=== PATIENT | female | born 1995 | race Caucasian/White ===

== ENCOUNTER 2023-05-14 14:03 | Outpatient (REF) | payer MEDICAID, SELFPAY ==
[2023-05-14 15:13] LABS: MANUAL DIFF FLAG NO
[2023-05-14 15:14] LABS: Basophils Absolute Auto 0.1 X10*3/uL (0.0-0.2); Basophils Percent Auto 0.8 % (0-2); Eosinophils Absolute Auto 0.1 X10*3/uL (0.0-0.4); Eosinophils Percent Auto 1.4 % (0-4); Hematocrit 40.2 % (37.0-47.0); Hemoglobin 12.7 g/dl (12.0-16.0); Imm Gran Abs Auto 0.03 X10*3/uL (0.00-0.03); Imm Gran Pct Auto 0.3 % (0.0-0.4); Lymphocytes Percent Auto 31.5 % (20-40); Mean Corpuscular HGB Conc 31.6 g/dl (31.0-35.0); Mean Corpuscular Hemoglobin 22.4 pg (27.0-33.0); Mean Corpuscular Volume 70.8 fL (80.0-98.0); Mean Platelet Volume 10.5 fL (9.4-12.3); Monocytes Absolute Auto 0.5 X10*3/uL (0.1-1.2); Monocytes Percent Auto 5.1 % (2-11); Neutrophils Absolute Auto 5.8 x10*3/uL (2.0-8.3); Neutrophils Percent Auto 60.9 % (45-73); Platelet Count 465 X10*3/uL (160-400); Red Blood Count 5.68 X10*6/uL (4.20-5.50); Red Cell Distribution Width 14.9 % (11.0-16.0); White Blood Count 9.6 X10*3/uL (4.8-10.8)
[2023-05-14 15:31] LABS: Alanine Aminotransferase 21 U/L (0-31); Albumin Level 4.3 g/dL (3.5-5.0); Alkaline Phosphatase 86 U/L (39-117); Anion Gap 13 (12-20); Aspartate Amino Transferase 18 U/L (5-31); Bilirubin Direct 0.2 mg/dL (0.0-0.5); Bilirubin Total 0.5 mg/dL (0.0-1.0); Blood Urea Nitrogen 12 mg/dL (9-16); Carbon Dioxide 24 mmol/L (22-29); Chloride 105 mmol/L (96-108); Cholesterol 132 mg/dL (<200); Estimated Glomerular Filt Rate > 60; Glucose Fasting 86 mg/dL (60-99); HDL Cholesterol 43 mg/dL (>40); LDL Cholesterol Calculated 72 mg/dL (<100); Sodium 138 mmol/L (135-145); Total Protein 7.9 g/dL (6.5-8.0); Triglycerides 89 mg/dL (<150)
== END 2023-05-14 14:04 | disposition home or self-care (01) ==
LOC: HO.HMGCLDS 14:03
PROVIDERS: PCP Internal Medicine; Visit Provider Internal Medicine
DX: E78.5 Hyperlipidemia, unspecified (principal)
CPT/HCPCS: 36415; 80051; 80061; 80076; 82565; 82947; 84520; 85025

== ENCOUNTER 2023-07-04 15:19 | Emergency (ER) | payer MEDICAID, SELFPAY ==
--- NOTE | ~2023-07-04 | US_ITS ---
EXAMINATION: US VENOUS ULTRASOUND WITH DOPPLER LOWER EXTREMITY, LEFT CLINICAL INFORMATION: Pain behind the knee. COMPARISON: None available. TECHNIQUE: Ultrasound of the deep veins is performed from the hip to the calf with compression sonography and color and pulse Doppler assessment. Spectral analysis with color-flow imaging is performed. FINDINGS: There is normal venous compression and respiratory variation and augmented flow. The visualized common femoral vein, superficial femoral vein, profunda femoral vein, popliteal vein, and the trifurcation region shows no evidence of deep venous thrombosis. There is a 2 x 3.4 x 0.7 cm slightly complex question ruptured popliteal fossa cyst extending into the proximal calf. US/US venous duplex LE LT IMPRESSION: No DVT demonstrated in the left lower extremity. Small Collier's cyst described above.
[2023-07-04 15:34] VITALS: BP 148/105; PULSE 91; RESP 16; TEMP 36.7; O2SAT 98; BMI 41.0
--- NOTE | 2023-07-04 15:35 | ED_ITS ---
HPI - Extremity Injury (Lower) General Chief Complaint: Extremity Injury, Lower Stated Complaint: lt knee pain x2 wks, lump back of knee fam hx clot Time Seen by Provider: 07/04/23 15:49 Source: patient Mode of arrival: ambulatory Limitations: no limitations History of Present Illness HPI Narrative: Patient is a 28 year old assigned female at with no reported medical history presenting to the emergency department today with left lower leg pain. Patient states that over the last 2 weeks she has had left lower leg pain with a lump felt behind her left knee. Patient states that she is concerned it is a DVT. Patient denies any dizziness, lightheadedness, abdominal pain, nausea, vomiting, fever, chills, blurry vision, double vision, loss of vision, chest pain, difficulty breathing, shortness of breath, back pain, night sweats, pain with urination, increased urinary frequency, increased urinary urgency, blood in her urine or stool, syncope or a near syncopal episode, recent trauma or falls, bowel incontinence, bladder incontinence, bowel retention, bladder retention, or any other complaints at this time. Onset (ago): week(s) (2) Severity: mild Severity scale (1-10): 3 Exacerbating factors: weight bearing and movement Other symptoms: none Related Data Allergies Allergy/AdvReac Type Severity Reaction Status Date / Time Penicillins Allergy Hives Verified 07/04/23 15:38 Review of Systems 2 Constitutional: Constitutional: Reports no additional constitutional complaints, Denies chills, Denies fever(s) and Denies night sweats Eyes: Eyes: Reports no additional eye complaints, Denies blurry vision, Denies change in vision, Denies diplopia, Denies eye discharge, Denies loss of vision and Denies eye pain ENT: Denies dizziness Cardiovascular: Cardiovascular: Reports no additional cardiovascular complaints, Denies chest pain, Denies lightheadedness, Denies Loss of Consciousness and Denies dyspnea Respiratory: Respiratory: Reports no additional respiratory complaints and Denies dyspnea Gastrointestinal: Gastrointestinal: Reports no additional gastrointestinal complaints, Denies abdominal pain, Denies melena, Denies hematochezia, Denies change in bowel habits and Denies change in stool character Genitourinary: Genitourinary: Denies hematuria, Denies urinary frequency, Denies dysuria, Denies urinary incontinence, Denies urinary hesitancy and Denies urinary urgency Musculoskeletal: Musculoskeletal: Reports no additional musculoskeletal complaints, Denies numbness and Denies tingling Comments: left knee pain Neurologic: Denies dizziness, Denies loss of vision, Denies numbness and Denies tingling Psychiatric: Psychiatric: Reports no additional psychiatric complaints Endocrine: Endocrine: Reports no additional endocrine complaints Hematologic/Lymphatic: Hematologic/Lymphatic: Reports no additional hematologic/lymphatic complaints Allergic/Immunologic: Allergic/Immunologic: Reports no additional allergic/immunologic complaints PMFSH Past Medical History Attestation statement: The following information was validated with the patient. Source: old records reviewed and nursing notes reviewed Social History Social History Advance Directives: No Advance Directives Information Provided: No Physical Exam 2 Vital Signs: Vital Signs: Last Vital Signs Temp 98.1 F 07/04/23 18:10 Pulse 71 07/04/23 18:10 Resp 18 07/04/23 18:10 BP 119/75 07/04/23 18:10 Pulse Ox 99 07/04/23 18:10 O2 Del Method Room Air 07/04/23 18:10 BMI result Body Mass Index 41.0 Const: General: cooperative, no acute distress, alert and awake Nutritional Appearance: well nourished Orientation/consciousness: patient oriented x3 Limitations: no limitations HEENT: Head: Yes normal to inspection and Yes atraumatic Ears: hearing grossly normal bilaterally and external ears normal General nose exam: Normal external nose present, no nasal discharge noted and no epistaxis Face and sinus: Yes normal facial exam, No abrasion and No laceration Mouth: Normal oral and palatal mucosa present, no drooling and no muffled voice Eyes: General: appearance normal, both eyes and all related structures P eriorbital: periorbital findings normal Eyelids: Yes eyelids normal C onjunctivae: conjunctivae normal Pupils: Equal, round and reactive pupils present EOM: EOMs intact bilaterally Neck: Neck: Yes normal visual inspection, Yes full ROM and Yes no lymphadenopathy Chest: Chest palpation & inspection: normal inspection of the chest Resp: Effort & Inspection: normal respiratory effort and able to speak in complete sentences GI: Inspection: Yes normal to inspection Neuro: General: patient oriented x3 and moves all extremities Cranial nerves: Yes Equal, round and reactive pupils present Cognition (Neuro): n ormal cognition Motor exam (neuro): 5/5 motor strength present throughout Sensory Exam: Normal double simultaneous stimulation for sensation C oordination: [id number] test normal Extrem: General: Yes normal to inspection, Yes full ROM and Yes capillary refill normal Psych: Appearance: grossly normal Mental Status: mental status grossly normal Affect: normal affect Attitude: cooperative Thought process: N ormal thought process present Thought content: Normal thought content present Insight: Good insight present (Psych) Course Course Course Narrative: This is a rapid medical exam: Additional HPI, ROS, PE not included below will be deferred to primary provider. Patient is a 28-year-old female presenting to the ED with complaint of left knee pain for the past 2 weeks. Noted a bump behind left knee recently, states pain radiates to L hip. Mother and sister have hx of DVTs. Plan: labs, US Medical Decision Making Medical Decision Making [facility] Narrative: Patient is a 28 year old assigned female at with no reported medical history presenting to the emergency department today with left knee pain. Patient's physical exam was unremarkable. Patient's blood work was unremarkable. Patient's left lower leg US showed no DVT but did show evidence of a small collier's cyst. I explained my physical exam findings as well as all test results to the patient. I answered all questions asked by the patient. I stressed the importance of the patient taking her medication as prescribed. I stressed the importance of the patient following up with her primary care provider and an orthopedic provider. I stressed the importance of the patient returning to the emergency department immediately if her symptoms were to worsen or if she were to develop any dizziness, shortness of breath, difficulty breathing, chest pain, blurry vision, loss of vision, nausea, vomiting, abdominal pain, fever, chills, back pain, or any other complaints. Patient verbalized agreement and understanding with this treatment plan and discharge. Differential Diagnosis Differential Diagnoses: The differential diagnosis associated with the presentation includes Collier's cyst DVT Lower leg pain Leg pain Knee pain Admission/Observation Consideration of admission/observation: Escalation of care including admission/observation considered Patient would have been admitted to the hospital had her work up had any findings where hospital admission was appropriate and her clinical presentation warranted hospital admission. Lab Data [facility] Lab Attestation statement: I reviewed the patient's lab results. My interpretation of these results are in the [facility] Rationale portion of this note. 07/04/23 15:48 07/04/23 15:48 Labs: Lab Results 07/04/23 Range/Units 15:48 WBC 8.0 (4.8-10.8) X10*3/uL RBC 5.30 (4.20-5.50) X10*6/uL Hgb 12.2 (12.0-16.0) g/dl Hct 38.4 (37.0-47.0) % MCV 72.5 L (80.0-98.0) fL MCH 23.0 L (27.0-33.0) pg MCHC 31.8 (31.0-35.0) g/dl RDW 14.6 (11.0-16.0) % Plt Count 444 H (160-400) X10*3/uL MPV 10.2 (9.4-12.3) fL Immature Gran % (Auto) 0.3 (0.0-0.4) % Neut % (Auto) 51.5 (45-73) % Lymph % (Auto) 38.4 (20-40) % Gilliam % (Auto) 5.9 (2-11) % Eos % (Auto) 2.8 (0-4) % Baso % (Auto) 1.1 (0-2) % Lymph # (Auto) 3.1 (1.2-4.9) X10*3/uL Gilliam # (Auto) 0.5 (0.1-1.2) X10*3/uL Eos # (Auto) 0.2 (0.0-0.4) X10*3/uL Baso # (Auto) 0.1 (0.0-0.2) X10*3/uL Abs Immat Gran (auto) 0.02 (0.00-0.03) X10*3/uL Absolute Neuts (auto) 4.1 (2.0-8.3) x10*3/uL Absolute Nucleated RBC 0.000 (0.0-0.012) X10*3/uL Nucleated RBC % (auto) 0.0 (0.0-0.2) /100WBC PT 12.8 (11.1-13.3) SEC INR 1.1 (0.9-1.1) Sodium 139 (135-145) mmol/L Potassium 4.1 (3.3-5.1) mmol/L Chloride 105 (96-108) mmol/L Carbon Dioxide 26 (22-29) mmol/L Anion Gap 12 (12-20) BUN 12 (9-16) mg/dL Creatinine 0.71 (0.5-1.4) mg/dL Estim Creat Clear Calc 152.1 Estimated GFR > 60 Random Glucose 88 (60-115) mg/dL Calcium 9.8 (8.4-10.2) mg/dL Total Bilirubin 0.3 (0.0-1.0) mg/dL AST 21 (5-31) U/L ALT 28 (0-31) U/L Alkaline Phosphatase 92 (39-117) U/L Total Protein 7.8 (6.5-8.0) g/dL Albumin 4.3 (3.5-5.0) g/dL Independent Interpretation I performed an independent interpretation of an: Ultrasound Interpretation: My interpretation is in agreement with the radiologist's impression of this imaging study. - EXAMINATION: US VENOUS ULTRASOUND WITH DOPPLER LOWER EXTREMITY, LEFT CLINICAL INFORMATION: Pain behind the knee. COMPARISON: None available. TECHNIQUE: Ultrasound of the deep veins is performed from the hip to the calf with compression sonography and color and pulse Doppler assessment. Spectral analysis with color-flow imaging is performed. FINDINGS: There is normal venous compression and respiratory variation and augmented flow. The visualized common femoral vein, superficial femoral vein, profunda femoral vein, popliteal vein, and the trifurcation region shows no evidence of deep venous thrombosis. There is a 2 x 3.4 x 0.7 cm slightly complex question ruptured popliteal fossa cyst extending into the proximal calf. US/US venous duplex LE LT IMPRESSION: No DVT demonstrated in the left lower extremity. Small Collier's cyst described above. Dictated By: Thelma Nunez MD Signed By: Electronically signed by Thelma Nunez MD 07/04/23 3930 Radiology Impression Discussion of test interpretation with radiology: I have reviewed the radiologist's reading. Discharge Plan Discharge Clinical Impression: Collier's cyst Patient Disposition: Home, Self-Care Instructions: Bakers Cyst (ED) Additional Instructions: Follow up with your primary care provider and an orthopedic provider. Return to the emergency department immediately if your symptoms worsen or if you develop any dizziness, shortness of breath, difficulty breathing, chest pain, blurry vision, loss of vision, nausea, vomiting, abdominal pain, fever, chills, back pain, or any other complaints. Referrals: [facility] [Provider Group] (Call to establish and follow up with an orthopedic provider. ) Esa Penaloza MD [Primary Care Provider] - Stand Alone Forms: Work/School Release Interventions: ED Discharge Assessment Last Done: 07/04/23 18:10 Discharge Date/Time: 07/04/23 18:12 Print Language: Arabic
[2023-07-04 15:52] LABS: MANUAL DIFF FLAG NO
[2023-07-04 15:55] LABS: Basophils Absolute Auto 0.1 X10*3/uL (0.0-0.2); Basophils Percent Auto 1.1 % (0-2); Eosinophils Absolute Auto 0.2 X10*3/uL (0.0-0.4); Eosinophils Percent Auto 2.8 % (0-4); Hematocrit 38.4 % (37.0-47.0); Hemoglobin 12.2 g/dl (12.0-16.0); Imm Gran Abs Auto 0.02 X10*3/uL (0.00-0.03); Imm Gran Pct Auto 0.3 % (0.0-0.4); Lymphocytes Absolute Auto 3.1 X10*3/uL (1.2-4.9); Lymphocytes Percent Auto 38.4 % (20-40); Mean Corpuscular HGB Conc 31.8 g/dl (31.0-35.0); Mean Corpuscular Volume 72.5 fL (80.0-98.0); Mean Platelet Volume 10.2 fL (9.4-12.3); Monocytes Absolute Auto 0.5 X10*3/uL (0.1-1.2); Monocytes Percent Auto 5.9 % (2-11); Neutrophils Absolute Auto 4.1 x10*3/uL (2.0-8.3); Neutrophils Percent Auto 51.5 % (45-73); Platelet Count 444 X10*3/uL (160-400); Red Cell Distribution Width 14.6 % (11.0-16.0)
[2023-07-04 16:05] LABS: INTERNATIONAL NORM RATIO 1.1 (0.9-1.1); Prothrombin Time 12.8 SEC (11.1-13.3)
[2023-07-04 16:07] LABS: Alanine Aminotransferase 28 U/L (0-31); Albumin Level 4.3 g/dL (3.5-5.0); Alkaline Phosphatase 92 U/L (39-117); Anion Gap 12 (12-20); Aspartate Amino Transferase 21 U/L (5-31); Bilirubin Total 0.3 mg/dL (0.0-1.0); Blood Urea Nitrogen 12 mg/dL (9-16); Calcium 9.8 mg/dL (8.4-10.2); Carbon Dioxide 26 mmol/L (22-29); Chloride 105 mmol/L (96-108); Creatinine Clr Calc Pharmacy 152.1; Estimated Glomerular Filt Rate > 60; Glucose Random 88 mg/dL (60-115); Potassium 4.1 mmol/L (3.3-5.1); Sodium 139 mmol/L (135-145); Total Protein 7.8 g/dL (6.5-8.0)
[2023-07-04 18:10] VITALS: BP 119/75; PULSE 71; RESP 18; TEMP 36.7; O2SAT 99
== END 2023-07-04 18:12 | disposition home or self-care (01) ==
PROVIDERS: Registered Nurse Emergency; Emergency Provider Student in an Organized Health Care Education/Training Program; PCP Internal Medicine
DX: M71.22 Synovial cyst of popliteal space [Baker], left knee (principal); M25.562 Pain in left knee; R60.0 Localized edema; Z79.899 Other long term (current) drug therapy
CPT/HCPCS: 36415; 80053; 85025; 85610; 93971; 99282; 99284

== ENCOUNTER 2023-07-08 10:44 | Outpatient (AMB) | payer MEDICAID, SELFPAY ==
--- NOTE | 2023-07-08 11:39 | MHC.OFFVIS ---
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 Patient reports being diagnosed with meningitis from , also has history of OA. She states finding relief with knee braces but she lost them when she moved here from [place]. She informed me that she has been working on her feet which causes her discomfort. Patient was [place] [facility] [place] on 07[place]04[place]23 where they found a collier cyst posterior aspect of her left knee. Patient found mild relief with PT. 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 Patient presented to the ED on 07/04/2023. Per the ED note, patient states that over the last 2 weeks she has had left lower leg pain with a lump felt behind her left knee. Ultrasound was performed and revealed a collier?s cyst. Patient reports being diagnosed with Meningitis from . She reports having a history of OA. She confirms the use of a brace with minor relief, but she states she lost the brace when she moved from [place]. She reports she works on her feet. 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 No ecchymosis, erythema, or joint effusion. No tenderness to palpation to the medial or lateral joint lines. Full knee extension and flexion. Negative Sweetie's. Negative anterior drawer. NVI. Assessment & Plan Assessment & Plan (1) Synovial cyst of popliteal space [Collier], left knee: Code(s): M71.22 - Synovial cyst of popliteal space [Collier], left knee Plan Ms. Campbell is a 28-year-old female who presents in the office today, as a new patient, for an evaluation of left knee pain. Patient presented to the ED on 07/04/2023. Per the ED note, patient states that over the last 2 weeks she has had left lower leg pain with a lump felt behind her left knee. Ultrasound was performed and revealed a collier?s cyst. Patient reports being diagnosed with Meningitis from . She reports having a history of OA. She confirms the use of a brace with minor relief, but she states she lost the brace when she moved from [place]. She reports she works on her feet. The patient will be fitted for a reaction/genumed knee brace, off the shelf, while in the office today. Follow up will be PRN, or sooner if needed. X-rays of the left knee which were obtained while in the office today and were reviewed by Arlyn terry PA-C, revealed no acute fracture or dislocation. Ultrasound of the left lower extremity, obtained 07/04/2023, revealed: FINDINGS: There is normal venous compression and respiratory variation and augmented flow. The visualized common femoral vein, superficial femoral vein, profunda femoral vein, popliteal vein, and the trifurcation region shows no evidence of deep venous thrombosis. There is a 2 x 3.4 x 0.7 cm slightly complex question ruptured popliteal fossa cyst extending into the proximal calf. IMPRESSION: No DVT demonstrated in the left lower extremity. Small Collier's cyst described above. Orders: Orders XR knee LT 3V Today M25.569 - Pain in unspecified knee Patient Instructions: Scribed by Amara Fontana director of medical services, for Arlyn Avelar PA-C on 07/08/2023 at 10:53 am, EST. Coding Level of Care Code New Pt Level 3 (38395) Diagnoses Synovial cyst of popliteal space [Collier], left knee M71.22
[2023-07-08 11:43] VITALS: BMI 41.0
== END 2023-07-08 12:04 | disposition home or self-care (01) ==
PROVIDERS: PCP Internal Medicine; Visit Provider Physician Assistant
DX: M71.22 Synovial cyst of popliteal space [Baker], left knee (principal)
CPT/HCPCS: 99203

== ENCOUNTER 2023-07-08 10:44 | Outpatient (REF) | payer MEDICAID, SELFPAY ==
--- NOTE | ~2023-07-08 | XR_ITS ---
EXAMINATION: XR KNEE, LEFT CLINICAL INFORMATION: Pain in unspecified knee. COMPARISON: None available. TECHNIQUE: AP standing view of bilateral knees. Lateral and sunrise views of the left knee. FINDINGS: Left knee: Moderate joint effusion. Bone mineralization is normal. Mild narrowing of the medial compartment. Single AP standing view of the right knee demonstrates mild narrowing of the medial compartment with tiny medial marginal osteophytes. XR/XR knee LT 3V IMPRESSION: Moderate left knee joint effusion. Mild narrowing of the medial compartment.
== END 2023-07-08 10:45 | disposition home or self-care (01) ==
LOC: HO.HOSX 10:44
PROVIDERS: PCP Internal Medicine; Visit Provider Physician Assistant
DX: M25.562 Pain in left knee (principal); M71.22 Synovial cyst of popliteal space [Baker], left knee; Z86.61 Personal history of infections of the central nervous system
CPT/HCPCS: 73562; 99212

== ENCOUNTER 2023-09-09 14:42 | Outpatient (AMB) | payer MEDICAID, SELFPAY ==
[2023-09-09 15:07] VITALS: BP 118/62; BMI 41.6
--- NOTE | 2023-09-09 15:07 | MHC.OFFVIS ---
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 She know she is overweight and she is working on it. She thinks she is healthy otherwise she was tearful at the beginning of the visit because be nervous she has been to her for 4 years and they are trying to get . She gets regular periods sometimes they might be a little bit late. She says she recently had blood work with her primary doctor and was told everything was okay and the diabetes runs in the family she does not have diabetes. She is not on the portal.. Throughout the discussions during the visit she voiced interest in being referred to the weight management program and requested it. At the very end of the visit she also shared that her mother and her sister both have a clotting disorder that is inherited and her mother and sister on blood thinners and her mother has an additional issue and is waiting another kind of referral as well. She says her mother was 440 lb and had bariatric surgery and lost weight but then gained a lot of it back and then started smoking she has now quit smoking but this contributes to the patient's motivation to want to lose the weight. She has been trying to eat better and eat less junk food unless sugar and eat salads and trying to walk at work. 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 Female Reproductive History Menstrual Age of Menarche: 11 Duration of menses: 6-7 days Date of last menstrual period: 08/29/23 control method: none Total pregnancies: 0 History of abnormal pap smear: No (no previous pap) Physical Exam Vital Signs: Last Vital Signs BP 118/62 09/09/23 15:07 BMI result Body Mass Index 41.6 Const General: healthy appearing, comfortable, no acute distress, well developed and alert Nutritional Appearance: average body habitus and obese Orientation/consciousness: patient oriented x3 Limitations: no limitations HEENT Head: Yes normocephalic Neck Neck: Yes normal visual inspection Thyroid: Thyroid normal Chest Chest palpation & inspection: normal inspection of the chest Breast/axilla inspection: normal inspection of the breasts and normal inspection of the axillae Breast/axilla palpation: normal palpation of the breasts and normal palpation of the axillae Resp Effort & Inspection: normal respiratory effort GI Inspection: Yes normal to inspection, No Abdominal wall edema and No distended Palpation (GI): Soft to palpation and nontender Other: External exam within normal limits vagina pink moist clear cervix nulliparous pink posterior smooth slightly friable with Pap scant normal clear discharge difficult to feel uterus or adnexa but neither enlarged or tender good tone with Kegel. General: Yes bladder normal to palpation External Female Exam: normal external appearance and normal appearance of the urethra Speculum Exam - Vagina: normal appearance of the vagina, normal palpation and normal vaginal discharge Speculum Exam - Cervix: normal appearance of the cervix, normal palpation and nontender Bimanual exam- vagina & uterus: normal bimanual exam, normal palpation, uterine size normal, bladder normal to palpation, consistency normal, normal palpation, uterine mobility normal, uterine shape normal, No Cervical tenderness present, non-tender and no cervical motion tenderness Bimanual Exam- Adnexa, other: normal adnexae, no masses, normal and No adnexal tenderness Neuro General: patient oriented x3 Assessment & Plan Assessment & Plan (1) Well woman exam with routine gynecological exam: Code(s): Z01.419 - Encounter for gynecological examination (general) (routine) without abnormal findings Category: Medical (2) Cervical cancer screening: Code(s): Z12.4 - Encounter for screening for malignant neoplasm of cervix Category: Medical (3) Patient desires : Code(s): Z31.9 - Encounter for procreative management, unspecified Category: Medical (4) Encounter for screening examination for sexually transmitted disease: Code(s): Z11.3 - Encounter for screening for infections with a predominantly sexual mode of transmission Category: Medical (5) Obesity, morbid, BMI 40.0-49.9: Code(s): E66.01 - Morbid (severe) obesity due to excess calories Category: Medical (6) Family history of clotting disorder: Code(s): Z83.2 - Family history of diseases of the blood and blood-forming organs and certain disorders involving the immune mechanism Category: Medical Plan -----Discussed in this visit the following: healthy balanced diet, regular and consistent exercise, getting recommended health screens, doing the best she can for her particular health concerns, kegel exercises, pap smear screening and followup recommendations, mammography screening and SBE, normal changes in cycles in her life stage--- . Discussed patient's effort at weight loss and congratulated her and encouraged her to really focus on losing weight now before trying to get and consider condom use until she loses the weight and manages to keep it off. I gave her information about the portal and I also checked her lab results done by her primary care provider. I gave her information and a referral to the weight management program. In addition because the patient informed me at the very end of the visit about her family history of blood clotting disorder I referred her to Hematology so that she can discuss this with them did share with her that if and when she does get she should get all her peer care from the extremes start of the at [facility] because if she has a clotting disorder that would put her at increased risk and that would be considerations necessary for that and additionally the obesity would put her at high risk that being said I recommend care for women with the 1st pregnancies at [facility] regardless because care from start to finish with the single team is much more comprehensive. I encouraged the patient call the weight management program herself so that she can move this process a long as this is the right time to do it when she is motivated and the younger she does not better. Pap smear was done I offered her testing for STIs and she accepted as her partner did have 1 partner right before her marriage. Additionally he should probably get checked by his primary care provider as well. Info about the patient portal also given to her we will see her in 1 year. I also sent a prescription for vitamins for her. Orders: Orders Syphilis Screen Today Z01.419 - Encounter for gynecological examination (general) (routine) without abnormal findings, Z11.3 - Encounter for screening for infections with a predominantly sexual mode of transmission, Z12.4 - Encounter for screening for malignant neoplasm of cervix, Z31.9 - Encounter for procreative management, unspecified Hepatitis B Surface Antigen Today Z01.419 - Encounter for gynecological examination (general) (routine) without abnormal findings, Z11.3 - Encounter for screening for infections with a predominantly sexual mode of transmission, Z12.4 - Encounter for screening for malignant neoplasm of cervix, Z31.9 - Encounter for procreative management, unspecified Hepatitis C Antibody Today Z01.419 - Encounter for gynecological examination (general) (routine) without abnormal findings, Z11.3 - Encounter for screening for infections with a predominantly sexual mode of transmission, Z12.4 - Encounter for screening for malignant neoplasm of cervix, Z31.9 - Encounter for procreative management, unspecified HIV Ab/Ag Today Z01.419 - Encounter for gynecological examination (general) (routine) without abnormal findings, Z11.3 - Encounter for screening for infections with a predominantly sexual mode of transmission, Z12.4 - Encounter for screening for malignant neoplasm of cervix, Z31.9 - Encounter for procreative management, unspecified Referrals Medical Weight Management Referral E66.01 - Morbid (severe) obesity due to excess calories, Z01.419 - Encounter for gynecological examination (general) (routine) without abnormal findings, Z11.3 - Encounter for screening for infections with a predominantly sexual mode of transmission, Z12.4 - Encounter for screening for malignant neoplasm of cervix, Z31.9 - Encounter for procreative management, unspecified Hematology & Oncology Referral E66.01 - Morbid (severe) obesity due to excess calories, Z01.419 - Encounter for gynecological examination (general) (routine) without abnormal findings, Z11.3 - Encounter for screening for infections with a predominantly sexual mode of transmission, Z12.4 - Encounter for screening for malignant neoplasm of cervix, Z31.9 - Encounter for procreative management, unspecified, Z83.2 - Family history of diseases of the blood and blood-forming organs and certain disorders involving the immune mechanism Medications: New PNV,calcium [id number] acid 27 mg iron- 1 mg ( Vitamins Plus Low Iron) 1 tab PO DAILY 90 tabs 4RF Coding Level of Care Code New Pt Prev Care [id number] Diagnoses Well woman exam with routine gynecological exam Z01.419 Cervical cancer screening Z12.4 Patient desires Z31.9 Encounter for screening examination for sexually transmitted disease Z11.3 Obesity, morbid, BMI 40.0-49.9 E66.01 Family history of clotting disorder Z83.2
== END 2023-09-09 16:07 | disposition home or self-care (01) ==
LOC: HO.HWSM 14:42
PROVIDERS: PCP Internal Medicine; Visit Provider Advanced Practice Midwife
DX: Z01.419 Encounter for gynecological examination (general) (routine) without abnormal findings (principal); Z12.4 Encounter for screening for malignant neoplasm of cervix; Z31.9 Encounter for procreative management, unspecified; Z11.3 Encounter for screening for infections with a predominantly sexual mode of transmission; E66.01 Morbid (severe) obesity due to excess calories; Z83.2 Family history of diseases of the blood and blood-forming organs and certain disorders involving the immune mechanism
CPT/HCPCS: 99385

== ENCOUNTER 2023-09-09 14:42 | Outpatient (REF) | payer MEDICAID, SELFPAY ==
[2023-09-09 19:16] LABS: Bacterial Vaginosis PCR NEGATIVE (Negative); Candida Group PCR NOT DETECTED (Not Detect); Candida glab krusei PCR NOT DETECTED (Not Detect); Trichomonas vaginalis PCR NOT DETECTED (Not Detect)
[2023-09-09 19:40] LABS: CT PCR NOT DETECTED (Not Detect.); NG PCR NOT DETECTED (Not Detect.)
== END 2023-09-09 14:43 | disposition home or self-care (01) ==
LOC: HO.LAB 14:42
PROVIDERS: PCP Internal Medicine; Visit Provider Advanced Practice Midwife
DX: Z01.419 Encounter for gynecological examination (general) (routine) without abnormal findings (principal); E66.01 Morbid (severe) obesity due to excess calories; N89.8 Other specified noninflammatory disorders of vagina; Z20.2 Contact with and (suspected) exposure to infections with a predominantly sexual mode of transmission; Z83.2 Family history of diseases of the blood and blood-forming organs and certain disorders involving the immune mechanism
CPT/HCPCS: 0352U; 0353U; 88142; 99385

== ENCOUNTER → 2023-10-03 13:53 | Outpatient (BNV) | payer MEDICAID, SELFPAY | PROVIDERS: PCP Internal Medicine; Referring Provider Nurse Practitioner Family; Visit Provider Internal Medicine Medical Oncology | DX: Z83.2 Family history of diseases of the blood and blood-forming organs and certain disorders involving the immune mechanism (principal) | CPT/HCPCS: 99203; 99213 ==

== ENCOUNTER 2024-08-18 10:03 | Outpatient (REF) | payer MEDICAID, SELFPAY ==
[2024-08-18 10:22] LABS: MANUAL DIFF FLAG NO
[2024-08-18 11:02] LABS: Basophils Absolute Auto 0.1 X10*3/uL (0.0-0.2); Basophils Percent Auto 1.7 % (0-2); Eosinophils Absolute Auto 0.2 X10*3/uL (0.0-0.4); Eosinophils Percent Auto 3.6 % (0-4); Hemoglobin 12.1 g/dl (12.0-16.0); Imm Gran Abs Auto 0.02 X10*3/uL (0.00-0.03); Imm Gran Pct Auto 0.3 % (0.0-0.4); Lymphocytes Absolute Auto 2.1 X10*3/uL (1.2-4.9); Lymphocytes Percent Auto 33.1 % (20-40); Mean Corpuscular Volume 70.9 fL (80.0-98.0); Mean Platelet Volume 10.9 fL (9.4-12.3); Monocytes Absolute Auto 0.3 X10*3/uL (0.1-1.2); Monocytes Percent Auto 5.3 % (2-11); Neutrophils Absolute Auto 3.6 x10*3/uL (2.0-8.3); Platelet Count 391 X10*3/uL (160-400); Red Cell Distribution Width 15.6 % (11.0-16.0); White Blood Count 6.5 X10*3/uL (4.8-10.8)
[2024-08-18 11:59] LABS: Alanine Aminotransferase 26 U/L (0-31); Albumin Level 4.2 g/dL (3.5-5.0); Alkaline Phosphatase 84 U/L (39-117); Anion Gap 10 (12-20); Aspartate Amino Transferase 20 U/L (5-31); Bilirubin Total 0.5 mg/dL (0.0-1.0); Blood Urea Nitrogen 10 mg/dL (9-16); Calcium 9.2 mg/dL (8.4-10.2); Carbon Dioxide 24 mmol/L (22-29); Chloride 108 mmol/L (96-108); Cholesterol 124 mg/dL (<200); Estimated Glomerular Filt Rate > 60; Glucose Fasting 94 mg/dL (60-99); HDL Cholesterol 46 mg/dL (>40); LDL Cholesterol Calculated 68 mg/dL (<100); Potassium 4.1 mmol/L (3.3-5.1); Sodium 138 mmol/L (135-145); Total Protein 7.2 g/dL (6.5-8.0); Triglycerides 53 mg/dL (<150)
== END 2024-08-18 10:04 | disposition home or self-care (01) ==
LOC: HO.LAB 10:03
PROVIDERS: PCP Internal Medicine; Visit Provider Internal Medicine
DX: Z00.00 Encounter for general adult medical examination without abnormal findings (principal); R53.83 Other fatigue; E78.5 Hyperlipidemia, unspecified
CPT/HCPCS: 36415; 80053; 80061; 85025

== ENCOUNTER 2025-02-26 15:21 | Outpatient (AMB) | payer OTHER, SELFPAY ==
--- NOTE | 2025-02-26 15:24 | A.OFFPC_ITS ---
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 Required: No Accompanied by: Self / Same As Patient Allergies Penicillins Allergy (Verified 02/26/25 15:27) Hives Medication List - Last Reconciled 02/26/25 by Jerome Yancey MD betamethasone dipropionate 0.05% topical BID hydroxyzine HCl 10 mg PO BEDTIME PRN Tobacco use date assessed: 02/26/25 Dental Screening Dental Screen Date: 02/26/25 Did you have a dental visit in the last 12 months?: No Did you have a dental problem in the last 6 months where you did not have access to dental care?: No Was dental information given to patient?: No HPI HPI Comments History of Present Illness Details Consent Patient was informed and verbally consented to the use of an ambient scribe for clinic note documentation during this visit. History of Present Illness The patient is a 29 year old individual presenting for assistance with weight loss and fertility. Obesity: The patient reports a long-standing struggle with weight management. The patient's current weight is 248 pounds; the patient weighed 269 pounds two years ago and had successfully lost weight down to 239 pounds before a recent gain. The patient has tried home workouts, incorporating more organic food and salads, reducing carbohydrates, and watching sugar intake. The goal weight is 200 pounds. Binge eating disorder: The patient reports a long-term issue with binge eating, which is a significant struggle. The patient states that cravings can be overwhelming, leading to feelings of guilt and subsequent cessation of weight loss efforts for months at a time. The patient has not previously had therapy for this but would be interested in it. Atopic Dermatitis: The patient has eczema on the neck, legs, and hands, which causes the skin to become very dry and crack. For this condition, the patient uses betamethasone and takes hydroxyzine if itching is severe at night and interferes with sleep. Low back pain: For the last month, the patient has experienced discomfort in the right lower back with sudden movements, such as standing up quickly or walking up stairs. The patient suspects it may be related to a workout but denies any specific trauma. 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 - Substance Use: Denies smoking, alcohol use, and illicit drug use. - Diet and Nutrition: The patient has at tempted to improve diet by incorporating more organic foods and salads, reducing carbohydrates, and monitoring sugar intake. - Weight Management: The patient reports struggles with binge eating, which sabotages weight loss efforts. - Exercise: The patient typically walks at work and used to perform 20-30 minutes of mixed-body workouts at home but has stopped for the past month due to back pain. - Sleep: Reports difficulty falling asle ep on Sundays and has had trouble staying asleep for the past 2-3 months. Family History: - Positive for cancer, arthritis, and di abetes. - Negative for fibroids. Diagnostic Results: - Prior Pap smears have all been normal. - Last laboratory testing was performed approximately 6 months to 1 year ago. Review of Systems - Skin: Reports eczema on the neck, legs , and hands, causing dryness, cracking, and itching. - Neurological: Reports a history of alex michelle that have since resolved; the patient no longer takes medication for them. - Musculoskeletal: Reports discomfort in the right lower back with certain movements for the past month and arthritis in the left knee. - Gynecologic: Reports heavy menstrual c ycles. - Psychiatric/Behavioral: Reports episod es of binge eating associated with feelings of guilt. - Sleep: Reports difficulty falling asle ep on Sundays and has been having trouble maintaining sleep for the last 2-3 months. 10-point ROS reviewed and negative excep t as noted in HPI Past Medical History - Atopic dermatitis - History of migraines, resolved - History of meningitis as an - Osteoarthritis of the left knee Health Maintenance - Pap smears are up to date. - Comprehensive laboratory screening ord ered. Physical Exam General: Well-appearing, in no acute distress. Vital signs: Within normal limits. HEENT: Normocephalic, atraumatic. PERRLA, EOMI. Conjunctiva clear, sclera anicteric. Oropharynx clear, mucous membranes moist. TMs intact bilaterally. Neck: Supple, no lymphadenopathy, no thyromegaly, no JVD or carotid bruits. Presence of eczema noted. Cardiovascular: RRR, normal S1/S2, no murmurs, rubs, or gallops. Peripheral pulses 2+ and symmetric. No edema. Varicose veins present. Respiratory: Lungs clear to auscultation bilaterally, no wheezes, rales, or rhonchi. Normal effort. Abdomen: Soft, non-tender, non-distended. Normoactive bowel sounds. No hepatosplenomegaly, no masses. MSK: Full range of motion, no joint swelling or deformity. Normal gait. Osteoarthritis in the left knee. Skin: Warm, dry, intact. Eczema present on neck, legs, and hands. No rashes, l esions, or pallor. Neuro: Alert and oriented x3. Cranial nerves II-XII intact. Strength 5/5 throughout. Sensation intact. Reflexes 2+ symmetric. Normal coordination and gait. Psych: Appropriate mood and affect. Normal judgment and insight. Plan 1. Obesity And Weight Management - A comprehensive set of labs will be or dered to establish a baseline, including a CBC, CMP, hemoglobin A1c, lipid panel, thyroid studies, urinalysis, vitamin B12, folate, vitamin D, and screening for hepatitis B, C, and HIV. - A referral will be placed for behavior al health services to address binge eating behaviors. - A referral will be placed to a medical weight management clinic, with the understanding that alternatives can be explored if it is not a good fit for the patient. - The possibility of using weight loss m edication, such as phentermine, was discussed and will be considered after lab results are available. - The patient will follow up in two week s to review lab results and further di scuss the management plan. 2. Atopic Dermatitis - The patient will continue the current regimen of betamethasone and hydroxyzine as needed for symptom control. Discussion Notes I discussed the plan to establish care and address the patient's primary concerns of weight management and fertility. I explained that a comprehensive set of baseline labs would be ordered to assess overall health before proceeding with weight loss interventions. We discussed the patient's struggles with binge eating, and I recommended a referral to behavioral health, which the patient agreed to. I also offered a referral to the medical weight management clinic, and I reassured the patient that we could find another option if it is not a good fit. During the physical exam, I noted the presence of acanthosis nigricans on the neck and explained that this can be a sign of insulin resistance. We discussed that weight loss medications are a potential future option pending the results of the blood work. I advised a follow-up appointment in two weeks to review all results and finalize a plan. Patient Instructions - Please go to the lab to have your bloo d drawn for the tests that were ordered. - You will receive a referral to [facility] for therapy and a referral to the medical weight management clinic. - If you are not happy with the weight m anagement clinic, please let me know, and we will find a different option. - Continue using your current medication s for eczema as you have been. - Please schedule a follow-up appointmen t in two weeks to discuss your lab results. Medical Decision Making The patient is a 29-year-old individual presenting to [facility] with primary concerns of weight management and fertility. The history is significant for obesity complicated by binge eating behaviors, which represent a major barrier to successful weight loss. The physical exam finding of acanthosis nigricans is concerning for underlying insulin resistance, a common comorbidity of obesity. The initial plan focuses on a comprehensive diagnostic workup to establish a metabolic baseline and screen for comorbidities before initiating specific treatments. This includes a full panel of labs to check for anemia, organ function, diabetes, dyslipidemia, and thyroid dysfunction. A multimodal approach to weight management is warranted, addressing both behavioral and physiological components; therefore, referrals to behavioral health for binge eating and to a medical weight management clinic for structured support are clinically indicated. Pharmacotherapy, such as phentermine, was discussed as a future option, but it is prudent to await lab results before consideration. A follow-up visit in two weeks will allow for review of all data and creation of a definitive, patient-centered treatment plan. Total Time Statement 30 min Total time spent caring for the patient today includes pre-visit chart review, documentation, review of laboratory and diagnostic imaging results, medication reconciliation, medically necessary evaluation, counseling on diagnoses, care coordination, ordering appropriate tests and medications, review of tests performed by other providers, reporting test results to the patient, and communication with other healthcare providers. [facility] Medical History (Updated 02/26/25 @ 16:02 by Jerome Yancey MD) History of meningitis History of migraine Insulin resistance Acanthosis nigricans Chronic lower back pain Atopic dermatitis Arthritis of left knee Morbid obesity due to excess calories Binge eating Family History Paternal Aunt Breast cancer Paternal Grandmother Diabetes Maternal Grandmother Skin cancer Maternal Grandmother Ovarian cancer Social History (Updated 02/26/25 @ 15:30 by Werner Rodríguez [facility]) Household Members: Spouse and Family Housing: House Alcohol intake: never Patient Tobacco Use Status: Never used Tobacco e-Cigarette/Vaping Use: Never Used Second Hand Smoke Exposure: No service: No Current occupational status: employed 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 1. Little interest or pleasure in doing things: not at all 2. Feeling down, depressed, or hopeless: not at all 3. Trouble falling or staying asleep, or sleeping too much: not at all 4. Feeling tired or having little energy: not at all 5. Poor appetite or overeating: not at all 6. Feeling bad about yourself - or that you are a failure or have let yourself or your family down: not at all 7. Trouble concentrating on things, such as reading the newspaper or watching television: not at all 8. Moving or speaking so slowly that other people could have noticed. Or the opposite - being so fidgety or restless that you have been moving around a lot more than usual: not at all 9. Thoughts that you would be better off or of hurting yourself in some way: not at all Total score: 0 Depression Screening Interpretation: Negative Depression Screening Done: Yes 21981 - PHQ-9 Billing: Yes Source: Developed by Drs. John Whitt, Leora Oro, Yazan Mccoy and colleagues, with an educational anthony from [employer]. Thrive Questionnaire Date Thrive assessed: 02/26/25 I am a: Patient What is your living situation today?: I have a steady place to live Within the past 12 months, did the food you bought not last and you didn't have the money to get more?: Never true Within the past 12 months, did you worry whether your food would run out before you got money to buy more?: Never true Do you have trouble paying for medicines?: No Do you have trouble getting transportation to medical appointments?: No Do you have trouble paying your heating and electricity bill?: No Do you have trouble taking care of your child, family member or friend?: No Do you have trouble with day-to-day activities such as bathing, preparing meals, shopping, managing finances, etc.?: No Are you currently unemployed and looking for a job?: No Are you interested in more education?: Yes Currently or been in a relationship where the following occur: No concerns reported THRIVE Score: 0 AUDIT C Alcohol Use Questionnaire (AUDIT-C) 1. How often do you have a drink containing alcohol?: Never Total Score: 0 SYLWIA-7 AMB Questionnaire SYLWIA-7 Date SYLWIA - 7 assessed: 02/26/25 Feeling nervous, anxious, or on edge: 0 = Not at all Not being able to stop or control worryin = Not at all Worrying too much about different things: 0 = Not at all Trouble relaxin = Not at all Being so restless that it is hard to sit still: 0 = Not at all Becoming easily annoyed or irritable: 0 = Not at all Feeling afraid as if something awful might happen: 0 = Not at all Total SYLWIA-7 score (0-4 normal; 5-9 mild; 10-14 moderate; 15-21 severe): 0 Source: Developed by Drs. John Whitt, Leora Oro, Yazan Mccoy and colleagues, with an educational anthony from [employer]. SYLWIA-7 Assessment Billing SYLWIA-7 Assessment Tool: SYLWIA-7 Assessment 25723 Review of Systems Narrative Review of Systems - Skin: Reports eczema on the neck, legs, and hands, causing dryness, cracking, and itching. - Neurological: Reports a history of migraines that have since resolved; the patient no longer takes medication for them. - Musculoskeletal: Reports discomfort in the right lower back with certain movements for the past month and arthritis in the left knee. - Gynecologic: Reports heavy menstrual cycles. - Psychiatric/Behavioral: Reports episodes of binge eating associated with feelings of guilt. - Sleep: Reports difficulty falling asleep on Sundays and has been having trouble maintaining sleep for the last 2-3 months. 10-point ROS reviewed and negative except as noted in HPI Physical exam (Primary Care) Vital Signs: Last Vital Signs Temp 97.8 F 02/26/25 15:30 Pulse 73 02/26/25 15:30 Resp 20 02/26/25 15:30 BP 99/58 L 02/26/25 15:30 Pulse Ox 99 02/26/25 15:30 Oxygen Delivery Method Room Air 02/26/25 15:30 BMI result Body Mass Index 40.1 Tobacco/Smoking Status: Tobacco use Status Tobacco use date assessed 02/26/25 02/26/25 15:32 Patient Tobacco Use Status Never used Tobacco 02/26/25 15:32 e-Cigarette/Vaping Use Never Used 02/26/25 15:32 PHQ-9: PHQ-9 Score PHQ-9: Total score 0 02/26/25 15:32 Depression Screening Interpretation: Negative Thrive Assessment: Date of Thrive Assessment Date Thrive assessed 02/26/25 02/26/25 15:32 Currently or been in a relationship where the following occur: No concerns reported Coding Level of Care Code New Pt Level 4 (87514) Diagnoses Binge eating R63.2 Arthritis of left knee M17.12 Morbid obesity due to excess calories E66.01 Atopic dermatitis L20.9 Chronic lower back pain M54.50; G89.29 Acanthosis nigricans L83 Insulin resistance E88.819 History of migraine Z86.69 History of meningitis Z86.61 Additional Codes SYLWIA-7 Assessment Billing - SYLWIA-7 Assessment Tool: SYLWIA-7 Assessment 40968 ([id number]) PHQ-9 - 49205 - PHQ-9 Billing: Yes ([id number]) Assessment & Plan Assessment & Plan (1) Binge eating: Code(s): R63.2 - Polyphagia Category: Medical (2) Arthritis of left knee: Code(s): M17.12 - Unilateral primary osteoarthritis, left knee Category: Medical (3) Morbid obesity due to excess calories: Code(s): E66.01 - Morbid (severe) obesity due to excess calories Category: Medical (4) Atopic dermatitis: Code(s): L20.9 - Atopic dermatitis, unspecified Category: Medical (5) Chronic lower back pain: Code(s): M54.50 - Low back pain, unspecified; G89.29 - Other chronic pain Category: Medical (6) Acanthosis nigricans: Code(s): L83 - Acanthosis nigricans Category: Medical (7) Insulin resistance: Code(s): E88.819 - Insulin resistance, unspecified Category: Medical (8) History of migraine: Code(s): Z86.69 - Personal history of other diseases of the nervous system and sense organs Category: Medical (9) History of meningitis: Code(s): Z86.61 - Personal history of infections of the central nervous system Category: Medical Plan Orders: Orders Complete Blood Count Auto Diff Today Z13.9 - Encounter for screening, unspecified HIV Ab/Ag Today Z13.9 - Encounter for screening, unspecified UA CC w/rflx Micro + Cult Today Z13.9 - Encounter for screening, unspecified Lipid Panel Today Z13.9 - Encounter for screening, unspecified Hemoglobin A1c Today Z13.9 - Encounter for screening, unspecified Magnesium Today Z13.9 - Encounter for screening, unspecified Vitamin D 1,25 dihydroxy Today Z13.9 - Encounter for screening, unspecified Hepatitis B Surface Antibody Today Z13.9 - Encounter for screening, unspecified Hepatitis B Surface Antigen Today Z13.9 - Encounter for screening, unspecified Comprehensive Met. Panel Today Z13.9 - Encounter for screening, unspecified Hepatitis C Antibody Today Z13.9 - Encounter for screening, unspecified TSH reflex Free T4 Today Z13.9 - Encounter for screening, unspecified Vitamin B12 and Folate Today Z13.9 - Encounter for screening, unspecified Referrals Behavioral Health Referral R63.2 - Polyphagia Medical Weight Management Referral E66.01 - Morbid (severe) obesity due to excess calories
[2025-02-26 15:30] VITALS: BP 99/58; PULSE 73; RESP 20; TEMP 36.6; O2SAT 99; BMI 40.1
== END 2025-02-26 16:00 | disposition home or self-care (01) ==
LOC: HO.HMCFMS 15:21
PROVIDERS: PCP Student in an Organized Health Care Education/Training Program; Visit Provider Student in an Organized Health Care Education/Training Program
DX: R63.2 Polyphagia (principal); M17.12 Unilateral primary osteoarthritis, left knee; E66.01 Morbid (severe) obesity due to excess calories; L20.9 Atopic dermatitis, unspecified; M54.50 Low back pain, unspecified; G89.29 Other chronic pain; L83 Acanthosis nigricans; E88.819 Insulin resistance, unspecified; Z86.69 Personal history of other diseases of the nervous system and sense organs; Z86.61 Personal history of infections of the central nervous system

== ENCOUNTER 2025-02-26 15:21 | Outpatient (REF) | payer OTHER, SELFPAY ==
[2025-02-26 18:22] LABS: MANUAL DIFF FLAG NO
[2025-02-26 18:30] LABS: Hematocrit 38.0 % (37.0-47.0); Hemoglobin 11.9 g/dl (12.0-16.0); Imm Gran Abs Auto 0.02 X10*3/uL (0.00-0.03); Imm Gran Pct Auto 0.3 % (0.0-0.4); Lymphocytes Absolute Auto 2.7 X10*3/uL (1.2-4.9); Mean Corpuscular HGB Conc 31.3 g/dl (31.0-35.0); Mean Corpuscular Hemoglobin 22.8 pg (27.0-33.0); Mean Corpuscular Volume 72.9 fL (80.0-98.0); NRBC Abs Auto 0.000 X10*3/uL (0.0-0.012); NRBC Pct Auto 0.0 /100WBC (0.0-0.2); Platelet Count 389 X10*3/uL (160-400); Red Blood Count 5.21 X10*6/uL (4.20-5.50); White Blood Count 7.6 X10*3/uL (4.8-10.8)
[2025-02-26 18:46] LABS: Appearance Urine Clear; Glucose Urine UA Negative (Negative); PH 6.5 (5.0-9.0); Specific Gravity - Urine 1.025 (1.005-1.025)
[2025-02-26 19:03] LABS: Alanine Aminotransferase 25 U/L (0-31); Albumin Level 4.6 g/dL (3.5-5.0); Alkaline Phosphatase 84 U/L (39-117); Anion Gap 12 (12-20); Aspartate Amino Transferase 24 U/L (5-31); Blood Urea Nitrogen 13 mg/dL (9-16); Calcium 8.8 mg/dL (8.4-10.2); Carbon Dioxide 23 mmol/L (22-29); Chloride 110 mmol/L (96-108); Cholesterol 118 mg/dL (<200); Estimated Glomerular Filt Rate > 60; HDL Cholesterol 47 mg/dL (>40); Magnesium 1.9 mg/dL (1.6-2.6); Potassium 4.0 mmol/L (3.3-5.1); Sodium 141 mmol/L (135-145); Total Protein 7.3 g/dL (6.5-8.0); Triglycerides 69 mg/dL (<150)
[2025-02-26 19:32] LABS: Folate 12.5 ng/mL (> or = 4.0); Vitamin B12 382 pg/mL (200-900)
[2025-02-27 05:21] LABS: HBS Num1 15.91 mIU/mL (0-7.99); HBsAGNum1 0.67 S/CO (0.00-0.99); HIV Num 1 0.07 S/CO (0.00-0.99); Hepatitis B Surface Antigen Negative (Negative); ~HepC Num1 0.08 S/CO (0.00-0.79); ~Hepatitis B Surface Antibody REACTIVE (Nonreactive); ~Hepatitis C Antibody Nonreactive (Nonreactive)
[2025-03-02 14:09] LABS: VITAMIN D (1,25 OH) D3 62 pg/mL; Vit D (1,25-Dihydroxy) Total 62 pg/mL (18-72); Vitamin D (1,25 OH) D2 <8 pg/mL
== END 2025-02-26 15:22 | disposition home or self-care (01) ==
LOC: HO.HKASLDS 15:21
PROVIDERS: PCP Nurse Practitioner Family; Visit Provider Student in an Organized Health Care Education/Training Program
DX: Z68.41 Body mass index [BMI] 40.0-44.9, adult (principal); Z13.9 Encounter for screening, unspecified; R63.2 Polyphagia; M17.12 Unilateral primary osteoarthritis, left knee; E66.01 Morbid (severe) obesity due to excess calories; L20.9 Atopic dermatitis, unspecified; M54.50 Low back pain, unspecified; G89.29 Other chronic pain; L83 Acanthosis nigricans; E88.819 Insulin resistance, unspecified; Z86.69 Personal history of other diseases of the nervous system and sense organs; Z86.61 Personal history of infections of the central nervous system; Z79.899 Other long term (current) drug therapy
CPT/HCPCS: 36415; 80053; 80061; 81003; 82607; 82652; 82746; 83036; 83735; 84443; 85025; 86706; 86803; 87340; 87389

== ENCOUNTER 2025-03-14 15:48 | Outpatient (AMB) | payer OTHER, SELFPAY ==
[2025-03-14 15:49] VITALS: BP 121/66; PULSE 68; RESP 16; TEMP 36.4; O2SAT 100; BMI 39.9
--- NOTE | 2025-03-14 15:49 | A.OFFPC_ITS ---
Vital Signs 03/14/25 15:49 Height 5 ft 6 in Weight 247 lb BMI 39.9 BP 121/66 Blood Pressure Location Rt brachial Position Sitting Respiration 16 Pulse 68 Pulse Source Pulse Oximeter Temp 97.5 F Temp Source Oral Pulse Oximetry (%) 100 Oxygen Delivery Method Room Air Intake Visit Reasons: 2 week follow up Intake Note: New patient/ Weight management/ Eczema Manager Testing Required: No Accompanied by: Self / Same As Patient Allergies Penicillins Allergy (Verified 03/14/25 15:49) Hives Medication List - Last Reconciled 03/15/25 by Jerome Yancey MD ascorbic acid (vitamin C) 500 mg PO DAILY betamethasone dipropionate 0.05% 0.05 appl topical BID ferrous sulfate 325 mg PO DAILY hydroxyzine HCl 10 mg PO BEDTIME PRN mecobalamin (vitamin B12) 1,000 mcg PO DAILY Tobacco use date assessed: 03/14/25 Dental Screening Dental Screen Date: 03/14/25 Did you have a dental visit in the last 12 months?: No Did you have a dental problem in the last 6 months where you did not have access to dental care?: No Was dental information given to patient?: No HPI HPI Comments History of Present Illness Details History of Present Illness The patient is a 29 year old female presenting for a review of her lab results. Iron deficiency anemia: The patient's lab results show a hemoglobin of 11.9 g/dL and a low MCV, which is suggestive of iron deficiency anemia. Potential causes discussed include diet and heavy menstruation. Vitamin B12 deficiency: The patient's vitamin B12 level is 382 pg/mL, which is on the lower side of the normal range of 200-900 pg/mL. Social History: - Diet: May contribute to iron deficienc y anemia. Diagnostic Results: - CBC: White blood cells are good, but h emoglobin is low at 11.9 g/dL with a low MCV. - Renal function: Appears good. - Glucose: Random glucose and hemoglobin A1c are normal, indicating no prediabetes or diabetes. - Calcium: Normal. - Vitamin B12: 382 pg/mL, which is on th e lower side of normal. - Thyroid function: Appears good. - Urinalysis: Normal. - Infectious disease screen: Negative fo r syphilis, hepatitis B, hepatitis C, and HIV. Past Medical History Health Maintenance - Screening labs were reviewed. - Patient is normoglycemic based on [facility] glucose and hemoglobin A1c results. - Patient screened negative for syphilis , hepatitis B, hepatitis C, and HIV. REPLACED BY [facility] Medical History (Updated 03/15/25 @ 21:27 by Jerome Yancey MD) Low vitamin B12 level Iron deficiency anemia History of meningitis History of migraine Insulin resistance Acanthosis nigricans Chronic lower back pain Atopic dermatitis Arthritis of left knee Morbid obesity due to excess calories Binge eating Family History Paternal Aunt Breast cancer Paternal Grandmother Diabetes Maternal Grandmother Skin cancer Maternal Grandmother Ovarian cancer Social History Household Members: Spouse and Family Housing: House Alcohol intake: never Patient Tobacco Use Status: Never used Tobacco e-Cigarette/Vaping Use: Never Used Second Hand Smoke Exposure: No service: No Current occupational status: employed 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 1. Little interest or pleasure in doing things: not at all 2. Feeling down, depressed, or hopeless: not at all 3. Trouble falling or staying asleep, or sleeping too much: not at all 4. Feeling tired or having little energy: not at all 5. Poor appetite or overeating: not at all 6. Feeling bad about yourself - or that you are a failure or have let yourself or your family down: not at all 7. Trouble concentrating on things, such as reading the newspaper or watching television: not at all 8. Moving or speaking so slowly that other people could have noticed. Or the opposite - being so fidgety or restless that you have been moving around a lot more than usual: not at all 9. Thoughts that you would be better off or of hurting yourself in some way: not at all Total score: 0 Depression Screening Interpretation: Negative Depression Screening Done: Yes 16528 - PHQ-9 Billing: Yes Source: Developed by Drs. John Whitt, Leora Oro, Yazan Mccoy and colleagues, with an educational anthony from [employer]. Thrive Questionnaire Date Thrive assessed: 02/09/25 I am a: Patient What is your living situation today?: I have a steady place to live Within the past 12 months, did the food you bought not last and you didn't have the money to get more?: Never true Within the past 12 months, did you worry whether your food would run out before you got money to buy more?: Never true Do you have trouble paying for medicines?: No Do you have trouble getting transportation to medical appointments?: No Do you have trouble paying your heating and electricity bill?: No Do you have trouble taking care of your child, family member or friend?: No Do you have trouble with day-to-day activities such as bathing, preparing meals, shopping, managing finances, etc.?: No Are you currently unemployed and looking for a job?: No Are you interested in more education?: Yes Currently or been in a relationship where the following occur: No concerns reported THRIVE Score: 0 AUDIT C Alcohol Use Questionnaire (AUDIT-C) 1. How often do you have a drink containing alcohol?: Never Total Score: 0 SYLWIA-7 AMB Questionnaire SYLWIA-7 Date SYLWIA - 7 assessed: 03/14/25 Feeling nervous, anxious, or on edge: 0 = Not at all Not being able to stop or control worryin = Not at all Worrying too much about different things: 0 = Not at all Trouble relaxin = Not at all Being so restless that it is hard to sit still: 0 = Not at all Becoming easily annoyed or irritable: 0 = Not at all Feeling afraid as if something awful might happen: 0 = Not at all Total SYLWIA-7 score (0-4 normal; 5-9 mild; 10-14 moderate; 15-21 severe): 0 Source: Developed by Drs. John Whitt, Yazan Pedro and colleagues, with an educational anthony from [employer]. SYLWIA-7 Assessment Billing SYLWIA-7 Assessment Tool: SYLWIA-7 Assessment 58075 Review of Systems Narrative Review of Systems - Constitutional: Denies feeling tired. - Neurological: Denies dizziness upon standing. - General: Denies pica, such as cravings for ice. 10-point ROS reviewed and negative except as noted in HPI Physical exam (Primary Care) Vital Signs: Last Vital Signs Temp 97.5 F 03/14/25 15:49 Pulse 68 03/14/25 15:49 Resp 16 03/14/25 15:49 BP 121/66 03/14/25 15:49 Pulse Ox 100 03/14/25 15:49 Oxygen Delivery Method Room Air 03/14/25 15:49 BMI result Body Mass Index 39.9 Tobacco/Smoking Status: Tobacco use Status Tobacco use date assessed 03/14/25 03/14/25 15:53 Patient Tobacco Use Status Never used Tobacco 03/14/25 15:53 e-Cigarette/Vaping Use Never Used 03/14/25 15:53 PHQ-9: PHQ-9 Score PHQ-9: Total score 0 03/15/25 10:27 Depression Screening Interpretation: Negative Thrive Assessment: Date of Thrive Assessment Date Thrive assessed 02/09/25 03/14/25 15:53 Currently or been in a relationship where the following occur: No concerns reported Narrative Physical Exam General: Well-appearing, in no acute distress. Vital signs: Within normal limits. HEENT: Normocephalic, atraumatic. PERRLA, EOMI. Conjunctiva clear, sclera anicteric. Oropharynx clear, mucous membranes moist. TMs intact bilaterally. Neck: Supple, no lymphadenopathy, no thyromegaly, no JVD or carotid bruits. Cardiovascular: RRR, normal S1/S2, no murmurs, rubs, or gallops. Peripheral pulses 2+ and symmetric. No edema. Respiratory: Lungs clear to auscultation bilaterally, no wheezes, rales, or rhonchi. Normal effort. Abdomen: Soft, non-tender, non-distended. Normoactive bowel sounds. No hepatosplenomegaly, no masses. MSK: Full range of motion, no joint swelling or deformity. Normal gait. Skin: Warm, dry, intact. No rashes, lesions, or pallor. Neuro: Alert and oriented x3. Cranial nerves II-XII intact. Strength 5/5 throughout. Sensation intact. Reflexes 2+ symmetric. Normal coordination and gait. Psych: Appropriate mood and affect. Normal judgment and insight. Coding Level of Care Code Est Pt Level 3 (91478) Add On Problem Visit Only Diagnoses Iron deficiency anemia D50.9 Low vitamin B12 level R79.89 Binge eating R63.2 Additional Codes SYLWIA-7 Assessment Billing - SYLWIA-7 Assessment Tool: SYLWIA-7 Assessment 46582 ([id number]) PHQ-9 - 94927 - PHQ-9 Billing: Yes ([id number]) Assessment & Plan Assessment & Plan (1) Iron deficiency anemia: Code(s): D50.9 - Iron deficiency anemia, unspecified Category: Medical (2) Low vitamin B12 level: Code(s): R79.89 - Other specified abnormal findings of blood chemistry Category: Medical (3) Binge eating: Code(s): R63.2 - Polyphagia Category: Medical Plan Consent Patient was informed and verbally consented to the use of an ambient scribe for clinic note documentation during this visit. Plan 1. Iron Deficiency Anemia - An iron supplement has been prescribed. - The patient was also prescribed Vitamin C to be taken immediately before the iron supplement to enhance absorption by increasing stomach acidity. - The patient was instructed to take the supplements one hour before eating or two hours after eating. - The patient was counseled that the iron supplement may cause constipation, advising her to drink plenty of water and increase fiber intake, and may also cause her stool to turn darker. 2. Vitamin B12 Deficiency - Recommended daily [id number] vitamin B12 supplementation to replenish levels. 3. Neurology Referral - The patient is pending a call back from [facility] for an appointment. - The patient was advised to call them back as the referral was sent two weeks prior. Discussion Notes I reviewed the patient's lab results with her. Her CBC showed a hemoglobin of 11.9 and a low MCV, which is indicative of iron deficiency anemia. I explained that this could be related to diet or heavy menses. I have prescribed iron and vitamin C, and instructed her to take them together to improve absorption. We also discussed that her B12 level was on the low side at 382, and I recommended oros-[id number]-[id number] daily supplementation. All other labs, including renal function, glucose, A1c, thyroid, and infectious disease screening, were within normal limits. Patient will follow up with [facility] for a previously sent referral. Patient Instructions - Take the prescribed iron supplement and vitamin C together. - Take these supplements one hour before you eat or two hours after you eat. - Be aware that the iron may make your stool darker and can cause constipation. - To help with constipation, drink more water and eat more fiber. - You should take an [id number]-rbzexbb vitamin B12 supplement every day. - Please call [facility] to follow up on your appointment, as the referral was sent two weeks ago. Medical Decision Making The patient presented for a review of her recent lab work. The [place] findings are a low hemoglobin of 11.9 g/dL and a low MCV, consistent with iron deficiency anemia. The patient denies symptoms such as fatigue or dizziness. Potential etiologies discussed include diet and heavy menstruation. I have initiated treatment with oral iron and concurrent vitamin C to maximize absorption. Additionally, her vitamin B12 level is on the lower end of normal at 382 pg/mL, for which I recommended daily obzq-sif-[id number] supplementation to prevent future deficiency. All other metabolic and infectious disease markers, including renal function and glucose control, are reassuringly normal. The patient will also follow up on a pending referral to neurology. Total Time Statement 20 min Total time spent caring for the patient today includes pre-visit chart review, documentation, review of laboratory and diagnostic imaging results, medication reconciliation, medically necessary evaluation, counseling on diagnoses, care coordination, ordering appropriate tests and medications, review of tests performed by other providers, reporting test results to the patient, and communication with other healthcare providers. Medications: New ferrous sulfate 325 mg PO DAILY 90 tabs 0RF ascorbic acid (vitamin C) 500 mg PO DAILY 90 tabs 0RF mecobalamin (vitamin B12) 1,000 mcg PO DAILY 90 tabs 0RF
== END 2025-03-14 16:16 | disposition home or self-care (01) ==
LOC: HO.HMCFMS 15:48
PROVIDERS: PCP Nurse Practitioner Family; Visit Provider Student in an Organized Health Care Education/Training Program
DX: D50.9 Iron deficiency anemia, unspecified (principal); R79.89 Other specified abnormal findings of blood chemistry; R63.2 Polyphagia

== ENCOUNTER → 2025-03-14 15:48 | Outpatient (BNVA) | payer OTHER, SELFPAY | PROVIDERS: PCP Nurse Practitioner Family; Visit Provider Student in an Organized Health Care Education/Training Program | DX: D50.9 Iron deficiency anemia, unspecified (principal); R79.89 Other specified abnormal findings of blood chemistry; R63.2 Polyphagia | CPT/HCPCS: 96127; 99212 ==